=== PATIENT | male | born 1990 | race Caucasian/White ===

== ENCOUNTER → 2017-08-31 | Outpatient (CLI) | payer BC ==
[~2017-08-31] MED LIST: ANAPROX DS550 MG PO; AUGMENTIN 875 M1 TAB PO; KEFLEX500 MG PO; LIDEX0.05% T; MOTRIN800 MG PO; PREDNICOT20 MG PO; PROVENTIL0.09 MG/AC IH
== END | disposition home or self-care (01) ==
LOC: RESCLI 11:33 → RAD 11:33
DX: M25.512 Pain in left shoulder (principal); R05 Cough

== ENCOUNTER 2018-04-02 07:07 | Emergency (ER) | payer SELFPAY ==
[~2018-04-02] VITALS: Ht 172.7 cm; Wt 72.6 kg
[2018-04-02] MEDS ORDERED: PROVENTIL HFA6.7 GM IH (07:17)
[2018-04-02 07:39] LABS: BASO # 0.1 10*3/uL (0.0-0.1); BASO % 0.4 % (0.0-1.0); EOS # 0.6 10*3/uL (0.0-0.4); EOS % 5.1 % (1.0-4.0); HEMATOCRIT 44.8 % (42.0-52.0); HEMOGLOBIN 15.8 g/dl (14.0-18.0); LYMPH # 1.7 10*3/uL (1.3-4.4); LYMPH % 14.9 % (27.0-41.0); MEAN CELL VOLUME 87.2 fl (80.0-94.0); MEAN CORPUSCULAR HGB 30.7 pg (27.0-31.0); MEAN CORPUSCULAR HGB CONC 35.3 g/dl (33.0-37.0); MEAN PLATELET VOLUME 9.8 fl (9.6-12.3); MONO # 0.8 10*3/uL (0.1-1.0); MONO % 6.8 % (3.0-9.0); NEUT # 8.5 10*3/uL (2.3-7.9); NEUT % 72.5 % (47.0-73.0); PLATELET COUNT AUTOMATED 160 10*3/uL (130-400); RED BLOOD COUNT 5.14 10*6/uL (4.50-5.90); RED CELL DISTRI WIDTH 11.8 % (0-14.5); WHITE BLOOD COUNT 11.7 10*3/uL (4.8-10.8)
[2018-04-02 07:50] LABS: BUN 15 mg/dl (7-24); CHLORIDE 102 mmol/L (98-107); CREATININE 1.07 mg/dL (0.70-1.30); SODIUM 136 mmol/L (136-145)
[2018-04-02] MEDS ORDERED: IMODIUM A-D2 M2 PO (08:10)
[2018-04-02] MEDS ORDERED: ZOFRAN ODT4 MG SL (08:10)
== END 2018-04-02 08:12 | disposition home or self-care (01) ==
LOC: ED 07:07
PROVIDERS: Emergency Medicine
DX: K52.9 Noninfective gastroenteritis and colitis, unspecified (principal); J02.9 Acute pharyngitis, unspecified; Z79.899 Other long term (current) drug therapy

== ENCOUNTER → 2020-07-29 | Outpatient (CLI) | payer OTHER ==
[~2020-07-29] MED LIST changes: +IMODIUM A-D2 M2 PO; +PROVENTIL HFA6.7 GM IH; +ZOFRAN ODT4 MG SL
== END | disposition home or self-care (01) ==
LOC: COVID19 16:04
PROVIDERS: ATTEND Family Medicine
DX: U07.1 COVID-19 (principal)

== ENCOUNTER 2020-10-17 00:25 | Emergency (ER) | payer OTHER ==
[2020-10-17 01:10] LABS: BILIRUBIN Negative (Negative); BLOOD Negative (Negative); CLARITY Clear (Clear); COLOR Yellow (Yellow); GLUCOSE Negative (Negative); KETONE Trace (Negative); LEUKO ESTERASE Negative (Negative); NITRITE Negative (Negative); PH 5.5 (4.5-8.0); UROBILINOGEN 0.2 E.U./dl (0.0-1.0)
[2020-10-17] MEDS ORDERED: CYCLOBENZAPRINE10 MG PO (04:58)
== END 2020-10-17 05:07 | disposition home or self-care (01) ==
LOC: ED 00:25
PROVIDERS: Physician Assistant
DX: M47.816 Spondylosis without myelopathy or radiculopathy, lumbar region (principal); F17.200 Nicotine dependence, unspecified, uncomplicated; Z98.890 Other specified postprocedural states

== ENCOUNTER 2024-01-23 07:01 | Emergency (ER) | payer BC ==
[~2024-01-23] VITALS: Ht 175.2 cm; Wt 93.0 kg
[~2024-01-23 07:01] MED LIST changes: +CYCLOBENZAPRINE10 MG PO
[2024-01-23] MEDS ORDERED: PREDNISONE20 M1 PO (07:49)
[2024-01-23] MEDS ORDERED: predniSONE 20 MG TAB PO ONE ×3 (07:50→08:05)
== END 2024-01-23 08:07 | disposition home or self-care (01) ==
LOC: ED 07:01
DX: L23.7 Allergic contact dermatitis due to plants, except food (principal); Z98.890 Other specified postprocedural states

== ENCOUNTER → 2024-12-19 | Outpatient (CLI) | payer BC ==
[~2024-12-19] MED LIST changes: +PREDNISONE20 M1 PO
== END | disposition home or self-care (01) ==
LOC: CARD 12:11
PROVIDERS: ATTEND Physician Assistant
DX: Z51.81 Encounter for therapeutic drug level monitoring (principal)

== ENCOUNTER 2025-03-21 18:29 | Emergency (ER) | payer BC ==
[~2025-03-21] VITALS: Ht 175.2 cm; Wt 86.2 kg
[2025-03-21] MEDS ORDERED: MIXED AMPHETAMI15 MG PO (18:38)
[2025-03-21] MEDS ORDERED: SODIUM CHLORIDE 0.9% 1,000 ML IV ONE (19:20)
[2025-03-21 19:35] LABS: BASO # 0.0 10*3/uL (0.0-0.1); BASO % 0.4 % (0.0-1.0); EOS # 0.3 10*3/uL (0.0-0.4); EOS % 4.1 % (1.0-4.0); MEAN CELL VOLUME 88.3 fl (80.0-94.0); MEAN CORPUSCULAR HGB 30.3 pg (27.0-31.0); MEAN PLATELET VOLUME 9.5 fl (9.6-12.3); MONO # 0.8 10*3/uL (0.1-1.0); MONO % 11.9 % (3.0-9.0); NEUT # 3.9 10*3/uL (2.3-7.9); NEUT % 55.2 % (47.0-73.0); NUCLEATED RED BLOOD CELL 0.0 % (0.0-0.0); NUCLEATED RED BLOOD CELL 0.0 10*3/uL (0.0-0.0); PLATELET COUNT AUTOMATED 186 10*3/uL (130-400); RED CELL DISTRI WIDTH 12.0 % (0-14.5)
[2025-03-21 19:57] LABS: BUN 8 mg/dl (9-23); SGPT/ALT 16 U/L (5-49)
[2025-03-21 20:25] LABS: BILIRUBIN Negative (Negative); BLOOD Negative (Negative); CLARITY Clear (Clear); COLOR Yellow (Yellow); KETONE 1+ (Negative); LEUKO ESTERASE Trace (Negative); NITRITE Negative (Negative); PH 6.0 (4.5-8.0); SPECIFIC GRAVITY 1.010 (1.001-1.030); UROBILINOGEN 1.0 E.U./dl (0.0-1.0)
[2025-03-21 20:34] LABS: EPITHELIAL CELLS 0-2
== END 2025-03-21 23:21 | disposition home or self-care (01) ==
LOC: ED 18:29
PROVIDERS: Emergency Medicine
DX: R10.31 Right lower quadrant pain (principal); Z79.899 Other long term (current) drug therapy